=== PATIENT | male | born 1990 | race Caucasian/White ===

== ENCOUNTER 2020-02-20 14:57 | Emergency (ER) | payer OTHER ==
[~2020-02-20] VITALS: Ht 177.8 cm; Wt 86.2 kg
[2020-02-20 15:36] VITALS: BP 134/77
--- NOTE | 2020-02-20 16:20 | NUR ---
PT LEFT WITHOUT BEING SEEN BY ED PROVIDER.
== END 2020-02-20 18:53 | disposition left against medical advice (07) ==
LOC: ER 15:14
DX: R05 Cough (principal); R09.81 Nasal congestion; Z53.21 Procedure and treatment not carried out due to patient leaving prior to being seen by health care provider

== ENCOUNTER 2020-02-20 21:32 | Emergency (ER) | payer OTHER ==
[~2020-02-20] VITALS: Ht 170.2 cm; Wt 90.7 kg
[2020-02-20 21:35] VITALS: BP 153/84
== END 2020-02-20 23:18 | disposition home or self-care (01) ==
LOC: ER 21:34
DX: U07.1 COVID-19 (principal); J02.8 Acute pharyngitis due to other specified organisms; F17.210 Nicotine dependence, cigarettes, uncomplicated
CPT/HCPCS: 71045-TC